=== PATIENT | female | born 1965 | race Caucasian/White ===

== ENCOUNTER 2019-05-11 14:31 | Outpatient (CLI) | payer OTHER | END 2019-05-11 14:32 | disposition home or self-care (01) | LOC: DTY/OP 14:31 | PROVIDERS: ATTEND Surgery | DX: E66.01 Morbid (severe) obesity due to excess calories (principal) | CPT/HCPCS: 97802 ==

== ENCOUNTER 2019-05-29 14:12 | Inpatient (IN) | payer OTHER ==
[2019-06-07 16:06] VITALS: BMI 40.7
[2019-06-08] MEDS ORDERED: Heparin 5,000 UNITS/ML VIAL ONE (09:27)
[2019-06-08] MEDS ORDERED: Bupivacaine/Epinephrine 0.25% 30 ML VIAL ONE ×2 (09:52→10:03)
[2019-06-08] MEDS ORDERED: Fentanyl 100 MCG/2 ML VIAL ONE ×3 (10:23→12:35)
[2019-06-08] MEDS ORDERED: Scopolamine 1.5 mg/72 hour Patch ONE (10:39)
[2019-06-08] MEDS ORDERED: Promethazine HCl 25 MG/ML VIAL IM PRN ×3 (12:00→12:48)
[2019-06-08] MEDS ORDERED: Ondansetron PF 4 MG/2 ML Vial IVP PRN ×2 (12:00→12:48)
[2019-06-08] MEDS ORDERED: Dextrose 5% in Water 1,000 ML IV PRN (12:00)
[2019-06-08] MEDS ORDERED: Hydrocodone-Acetamin 15 ML UDCUP PO PRN ×2 (12:00→12:55)
[2019-06-08] MEDS ORDERED: Dextrose 50% Abboject 50 ML SYRINGE SLOW IVP PRN (12:00)
[2019-06-08] MEDS ORDERED: diphenhydrAMINE 50 MG/ML VIAL IVP PRN ×2 (12:00→12:48)
[2019-06-08] MEDS ORDERED: hydrALAZINE 20 MG/ML VIAL SLOW IVP PRN (12:00)
[2019-06-08] MEDS ORDERED: Ketorolac Tromethamine 30 MG/ML VIAL IVP SCH (12:00)
[2019-06-08] MEDS ORDERED: Ondansetron HCl/PF 4 MG/2 ML Vial IVP PRN (12:08)
[2019-06-08] MEDS ORDERED: Promethazine HCl 25 MG/ML VIAL SLOW IVP PRN (12:08)
[2019-06-08] MEDS ORDERED: Meperidine HCl/PF 25 MG/ML VIAL SLOW IVP PRN (12:08)
[2019-06-08] MEDS ORDERED: Ketorolac Tromethamine 30 MG/ML VIAL IVP PRN ×2 (12:08→12:48)
[2019-06-08] MEDS ORDERED: PACU-Morphine 4MG/ML VIAL SLOW IVP PRN (12:08)
[2019-06-08] MEDS ORDERED: HYDROmorphone 2 MG/ML VIAL SLOW IVP PRN (12:08)
[2019-06-08] MEDS ORDERED: Morphine Sulfate 2 MG/ML SYRINGE SLOW IVP PRN (12:08)
[2019-06-08] MEDS ORDERED: Ketorolac Tromethamine 30 MG/ML VIAL ONE (12:21)
[2019-06-08] MEDS ORDERED: D5 1/2 NS w/20 mEq KCL 1,000 ML ONE (12:45)
[2019-06-08] MEDS ORDERED: diphenhydrAMINE 50 MG/ML VIAL IM PRN (12:48)
[2019-06-08] MEDS ORDERED: Zolpidem Tartrate 5 MG TAB PO PRN (12:48)
[2019-06-08] MEDS ORDERED: Naloxone HCl 0.4 mg/ml Vial IV PRN (12:48)
[2019-06-08] MEDS ORDERED: diphenhydrAMINE 25 MG CAP PO PRN (12:48)
[2019-06-08] MEDS ORDERED: fentaNYL Citrate/PF 2,000 MCG in Sodium Chloride 0.9% 60 ML IV PRN (12:48)
[2019-06-08] MEDS ORDERED: Communication Order-Pharmacy FS SCH (13:00)
--- NOTE | 2019-06-08 15:02 | HP ---
CHIEF COMPLAINT: Morbid obesity. HISTORY OF PRESENT ILLNESS: The patient is a 54-year-old female, who has been overweight for many years, attempted multiple weight loss programs without success. She is here for sleeve gastrectomy. PAST MEDICAL HISTORY: Hearing loss and hypothyroidism. PAST SURGICAL HISTORY: She has had a tonsillectomy, breast reduction, thyroidectomy, and bladder lift. MEDICATIONS: Synthroid. FAMILY HISTORY: Both parents are , unknown causes. SOCIAL HISTORY: She has two children. Occasional alcohol. No tobacco. ALLERGIES: NO KNOWN DRUG ALLERGIES. PHYSICAL EXAMINATION: GENERAL: Well-developed, well-nourished female, in no apparent distress. VITAL SIGNS: Height 63, weight 235, and body mass index 41.6. HEENT: Pupils are equal, round, and reactive. Extraocular motor intact. Pharynx clear. Good dentition. NECK: Supple. No thyroid masses. No carotid bruits. LUNGS: Clear. HEART: Regular rate and rhythm. BREASTS: No palpable breast masses. No lymphadenopathy. ABDOMEN: Soft, nondistended, and nontender. No masses or hernias. BACK: Nontender. No deformity. EXTREMITIES: Good pulses. No pedal edema. ASSESSMENT: Morbid obesity. PLAN: Laparoscopic sleeve gastrectomy. CONSENT: I have discussed planned procedure as well as risk of bleeding, infection, injury to esophagus, spleen, loops of bowel, need to open, and leakage from staple line. She understands and gives informed consent. Job ID: [id number]
[2019-06-08] MEDS: CEFAZOLIN 2 GM in Premix Bag 1 BAG IVPB SCH (17:24)
[2019-06-08] MEDS: D5 1/2 NS w/20 mEq KCL 1,000 ML IV SCH ×2 (17:32→19:32)
[2019-06-09] MEDS: CEFAZOLIN 2 GM in Premix Bag 1 BAG IVPB SCH (01:13)
[2019-06-09] MEDS: D5 1/2 NS w/20 mEq KCL 1,000 ML IV SCH ×2 (04:01→12:00)
[2019-06-09 05:10] LABS: Anion Gap 11 mmol/L (10-20); BUN (Urea Nitrogen) 6 mg/dL (9.8-20.1); Calc. Creatinine Clearance 138 mL/min (70-130); Calcium 8.8 mg/dL (7.8-10.44); Carbon Dioxide 22 mmol/L (22-29); Chloride 108 mmol/L (98-107); Estimated GFR-MDRD 79; Glucose 150 mg/dL (70-105); Potassium 4.1 mmol/L (3.5-5.1); Sodium 137 mmol/L (136-145)
[2019-06-09 05:12] LABS: #Lymphocytes 1.2 thou/uL (1.20-3.40); #Monocytes 0.6 thou/uL (0.11-0.59); #Neutrophils 7.1 thou/uL (1.40-6.50); %Basophils 0.1 % (0.0-1.0); %Eosinophils 0.1 % (0.0-10.0); %Lymphocytes 13.8 % (21.0-51.0); %Neutrophils 78.9 % (42.0-75.0); Hemoglobin 13.1 g/dL (12.0-16.0); Mean Corpuscular Hemoglobin 30.1 pg (27.0-31.0); Mean Corpuscular Volume 88.5 fL (78.0-98.0); Mean Platelet Volume 8.3 fL (7.4-10.4); Platelet Count 225 thou/uL (130-400); RBC Distribution Width 12.4 % (11.5-14.5); Red Blood Cell (RBC) Count 4.36 mill/uL (4.20-5.40)
--- NOTE | 2019-06-09 07:27 | PDOC.GSPN ---
Surgery Progress Note: Subj - Subjective Patient reports: no bowel movement Narrative: Patient is a 54 yof POD 1 for LSG who complains of epigastric abdominal pain. The pain is a generalized ache that does not radiate. She rates it as a 3/10. She also complains of bloating and mild nausea. She has been able to ambulate well with physical therapy, and has urinated without difficulty. Has not had a bowel movement since surgery. Denies vomiting, chest pain, shortness of breath, dysuria, drainage from incision sites or sharp abdominal pain. Surgery Progress Note: Obj - Vital signs Vital signs: Vital Signs - Most Recent Temp Pulse Resp BP Pulse Ox 98.0 F 61 16 119/73 92 L 06/09/19 04:31 06/09/19 04:31 06/09/19 04:31 06/09/19 04:31 06/09/19 04:31 - Physical Exam General: no distress (Patient is lying comfortably in bed) Cardiovascular: regular rate and rhythm Respiratory: clear to auscultation Abdomen: soft, positive bowel sounds Psychiatric: speech is normal Wound: healing well Surgery Progress Note: Results - Labs Result Diagrams: 06/09/19 04:34 06/09/19 04:34 Lab results: Laboratory Results - last 24 hr 06/09/19 06/09/19 04:34 04:34 WBC 9.0 RBC 4.36 Hgb 13.1 Hct 38.6 MCV 88.5 MCH 30.1 MCHC 34.0 RDW 12.4 Plt Count 225 MPV 8.3 Neutrophils % 78.9 H Lymphocytes % 13.8 L Monocytes % 7.0 Eosinophils % 0.1 Basophils % 0.1 Neutrophils # 7.1 H Lymphocytes # 1.2 Monocytes # 0.6 H Eosinophils # 0.0 Basophils # 0.0 Sodium 137 Potassium 4.1 Chloride 108 H Carbon Dioxide 22 Anion Gap 11 BUN 6 L Creatinine 0.76 Estimated GFR (MDRD) 79 Glucose 150 H Calcium 8.8 Surgery Progress Note: A/P - Problem (1) S/P gastrectomy Current Visit: Yes Status: Acute - Plan Plan: Awaiting manometry study this morning. Once results are reviewed, patient should be able to go home on a clear liquid diet. Follow-up in clinic in 2-3 weeks time.
--- NOTE | 2019-06-09 08:36 | RAD ---
Esophagram HISTORY: Bariatric surgery. FINDINGS: Single column contrast evaluation shows postoperative appearance of the stomach consistent with gastric bypass/vertical sleep procedure. No evidence of obstruction or leak. Fluoroscopy time 0.3 minutes.
[2019-06-09] MEDS ORDERED: Enoxaparin Sodium 40 MG/0.4 ML SYRINGE SC SCH (09:00)
[2019-06-09] MEDS ORDERED: Pantoprazole 40 MG VIAL IVP SCH (09:00)
--- NOTE | 2019-06-09 09:42 | OP ---
DATE OF PROCEDURE: 06/08/2019 PREOPERATIVE DIAGNOSIS: Morbid obesity. PROCEDURES PERFORMED: Laparoscopic sleeve gastrectomy and esophagogastroscopy. INDICATIONS: A 54-year-old female, morbidly obese, who has attempted multiple weight loss programs without success. FINDINGS: A 38-Malian bougie used. DESCRIPTION OF PROCEDURE: After informed consent was obtained, the patient was taken to the operating room and given general endotracheal anesthesia. She was placed in the supine position. Abdomen was prepped and draped in usual fashion. Local anesthesia infiltrated subcutaneously and deep. A 12-mm incision was performed 8 inches above the xiphoid slightly to the left. Veress needle was inserted. Drop test was performed. Pneumoperitoneum was created to a volume of 2 L of carbon dioxide. Utilizing a bladeless 12 mm trocar and 0-degree laparoscope, direct visual entry into the abdominal cavity was performed. Pneumoperitoneum was created to a pressure of 15 mmHg, and the patient was placed in steep reverse Trendelenburg position. Maribeth liver retractor was inserted. Left lobe of the liver retracted superior and the pylorus identified. A 12 mm port placed on the right beneath it and two 12s placed in left subcostal. The omentum was taken off the greater curvature 5 cm from the pylorus utilizing the LigaSure. Short gastrics divided with LigaSure and left crura defined with LigaSure. A 38-Malian bougie inserted, directed into the antrum. The linear 60 mm green load stapler was used to divide the antrum to the bougie, gold load along the bougie, and a series of blues through the angle of His. Intraoperative endoscopy was performed. The video endoscope inserted under direct vision and advanced into the sleeve. The staple line inspected. There was no bleeding. Staple line then tested. By inflating the new stomach with pressurized air and water, there was no air leak. Stomach decompressed. Scope removed. The remnant stomach removed from the abdomen through the left lateral port site. The fascia was closed with 0 Vicryl suture and the GraNee needle. Trocars and retractors were removed. Skin was closed with interrupted 4-0 Rapide. Dermabond applied. The patient tolerated the procedures well, transferred to Recovery in good condition. Sponge and needle count verified correct x2. Job ID: [id number]
[2019-06-09 11:39] VITALS: BP 123/78; TEMP 97.9
--- NOTE | 2019-06-09 13:01 | DIS ---
DATE OF ADMISSION: 06/08/2019 DATE OF DISCHARGE: 06/09/2019 DISCHARGE DIAGNOSIS: Morbid obesity. PROCEDURES DURING ADMISSION: Laparoscopic sleeve gastrectomy, intraoperative esophagogastroscopy, and postoperative Gastrografin swallow. HOSPITAL COURSE: The patient was admitted, taken to the operating room, where she underwent sleeve gastrectomy. Postoperatively, she had a swallow. It was fine. She was started on liquids. She is tolerating them well. She is discharged home on hydrocodone and Zofran. She will follow up with me in 2 weeks. Job ID: [id number]
== END 2019-06-09 12:41 | disposition home or self-care (01) | DRG 621 ==
LOC: SURG A 06-08 08:40 → SURG B 06-08 14:58
PROVIDERS: ADMIT Surgery; ATTEND Surgery
PROC: 0DB64Z3 Excision of Stomach, Percutaneous Endoscopic Approach, Vertical (ICD-10-PCS; principal; 2019-06-08)
PROC: 0DJ08ZZ Inspection of Upper Intestinal Tract, Via Natural or Artificial Opening Endoscopic (ICD-10-PCS; 2019-06-08)
DX: E66.01 Morbid (severe) obesity due to excess calories (principal); H91.90 Unspecified hearing loss, unspecified ear; E03.9 Hypothyroidism, unspecified; Z68.41 Body mass index [BMI] 40.0-44.9, adult
CPT/HCPCS: 36415; 74241; 80048; 85025; 88307; 88312; C9113; J0131; J0690; J1644; J1650; J1885; J2405; J3010

== ENCOUNTER 2019-05-29 15:49 | Outpatient (CLI) | payer OTHER ==
--- NOTE | 2019-05-29 16:27 | RAD ---
XR Chest Pa Lat STANDARD HISTORY: Preop COMPARISON: None. FINDINGS: Heart size and mediastinum are within normal limits. The lungs are clear of infiltrates. No significant bony findings. IMPRESSION: No active intrathoracic disease.
[2019-05-29 16:32] LABS: #Basophils 0.1 thou/uL (0.0-0.2); #Eosinphils 0.1 thou/uL (0.0-0.7); #Lymphocytes 2.3 thou/uL (1.20-3.40); #Monocytes 0.5 thou/uL (0.11-0.59); #Neutrophils 3.7 thou/uL (1.40-6.50); %Basophils 0.8 % (0.0-1.0); %Eosinophils 2.2 % (0.0-10.0); %Lymphocytes 34.3 % (21.0-51.0); %Monocytes 7.5 % (0.0-10.0); %Neutrophils 55.2 % (42.0-75.0); Hemoglobin 14.3 g/dL (12.0-16.0); Mean Corpuscular HGB CONC 33.7 g/dL (32.0-36.0); Mean Corpuscular Hemoglobin 29.9 pg (27.0-31.0); Mean Corpuscular Volume 88.6 fL (78.0-98.0); Mean Platelet Volume 7.9 fL (7.4-10.4); Platelet Count 211 thou/uL (130-400); RBC Distribution Width 12.6 % (11.5-14.5); Red Blood Cell (RBC) Count 4.78 mill/uL (4.20-5.40); White Blood Cell (WBC) Count 6.7 thou/uL (4.8-10.8)
[2019-05-29 16:47] LABS: Hemoglobin A1c 5.5 % (4.0-6.0)
[2019-05-29 16:56] LABS: ALT (SGPT) 106 U/L (8-55); AST (SGOT) 58 U/L (5-34); Albumin 4.4 g/dL (3.5-5.0); Alkaline Phosphatase 92 U/L (40-110); Anion Gap 12 mmol/L (10-20); BUN (Urea Nitrogen) 22 mg/dL (9.8-20.1); Bilirubin, Direct 0.2 mg/dL (0.1-0.3); Bilirubin, Total 0.4 mg/dL (0.2-1.2); Calc. Creatinine Clearance 0 mL/min (70-130); Calcium 9.7 mg/dL (7.8-10.44); Carbon Dioxide 24 mmol/L (22-29); Chloride 103 mmol/L (98-107); Estimated GFR-MDRD 74; Glucose 93 mg/dL (70-105); Potassium 4.1 mmol/L (3.5-5.1); Protein, Total 7.4 g/dL (6.0-8.3); Sodium 135 mmol/L (136-145)
[2019-05-29 18:41] LABS: BHCG - Serum Negative (NEGATIVE); Pregs Control Background? CLEAR/WHITE (CLR/WHITE); Pregs Control Bar Appear? YES (CONTROL BAR)
== END 2019-05-29 15:50 | disposition home or self-care (01) ==
LOC: LABBT 15:49
PROVIDERS: ATTEND Surgery
DX: Z01.818 Encounter for other preprocedural examination (principal); E66.01 Morbid (severe) obesity due to excess calories
CPT/HCPCS: 71046; 80053; 80076; 83036; 84703; 85025; 93005; 93010

== ENCOUNTER → 2019-06-14 | Day surgery (SDC) | payer SELFPAY ==
[~2019-06-14] MED LIST: Multivit, Adult Inj 10 ML VIAL ONE
== END ==
LOC: ER/OP 17:35
PROVIDERS: ATTEND Emergency Medicine
DX: Z51.89 Encounter for other specified aftercare (principal)